=== PATIENT | female | born 1980 | race Caucasian/White ===

== ENCOUNTER → 2016-11-23 | Outpatient (CLI) | payer BC, OTHER | LOC: KOH-I 11-16 14:00 | DX: R20.2 Paresthesia of skin (principal) | CPT/HCPCS: 93925; 93930 ==

== ENCOUNTER 2017-02-21 11:05 | Emergency (ER) | payer BC, OTHER | END 2017-02-21 12:30 | disposition home or self-care (01) | LOC: ER1 11:05 | DX: N61.1 Abscess of the breast and nipple (principal); I10 Essential (primary) hypertension; F32.9 Major depressive disorder, single episode, unspecified; E78.5 Hyperlipidemia, unspecified; F17.210 Nicotine dependence, cigarettes, uncomplicated; Z79.899 Other long term (current) drug therapy | CPT/HCPCS: 10061; 87070; 87205; 99283 ==

== ENCOUNTER → 2021-12-29 | Outpatient (CLI) | payer BC ==
[2021-12-29 14:29] LABS: BUN/CREATININE RATIO 12 (0-10)
[2021-12-29 16:24] LABS: HEMOGLOBIN 14.1 gm/dl (12.3-15.3); RED BLOOD COUNT 4.71 M/UL (4.00-5.10); WHITE BLOOD COUNT 7.8 K/UL (4.5-11.0)
== END ==
LOC: CT 13:13 → KOH-I 13:30
PROVIDERS: Nurse Practitioner
DX: I67.1 Cerebral aneurysm, nonruptured (principal); R51.9 Headache, unspecified; R42 Dizziness and giddiness
CPT/HCPCS: 36415; 70470; 80053; 85025; Q9967